=== PATIENT | female | born 1965 | race Caucasian/White ===

== ENCOUNTER 2021-06-01 15:14 | Outpatient (CLI) | payer OTHER, SELFPAY ==
--- NOTE | ~2021-06-01 | MM_ITS ---
EXAMINATION: MM screening [facility] w george HISTORY: Screening mammogram TECHNIQUE: Craniocaudal and mediolateral oblique 3-D tomosynthesis images were obtained and synthetic 2-D images were generated. CAD analysis was submitted and interpreted. COMPARISON: No prior mammogram is available for comparison at this institution. BREAST PARENCHYMAL COMPOSITION: The breasts are almost entirely fatty. FINDINGS: There is no evidence of suspicious mass, calcification, or architectural distortion to sugg est malignancy in either breast. IMPRESSION: 1. No mammographic evidence of malignancy. 2. Recommend routine screening mammography in one year. BI-RADS Category 1: Negative Reviewed, dictated and finalized at location A.
== END 2021-06-01 15:15 | disposition home or self-care (01) ==
PROVIDERS: PCP Internal Medicine; Visit Provider Internal Medicine
DX: Z12.31 Encounter for screening mammogram for malignant neoplasm of breast (principal)
CPT/HCPCS: 77063; 77067

== ENCOUNTER 2021-12-03 16:19 | Emergency (ER) | payer OTHER, SELFPAY ==
--- NOTE | ~2021-12-03 | CT_ITS ---
EXAMINATION: CT cervical spine wo con DATE: 12/03/2021 17:31 INDICATION: Neck pain after fall TECHNIQUE: Computed tomography (CT) of the cervical spine was performed without intravenous contrast. The dose-length product was 562 mGy-cm. Automated exposure control and iterative reconstruction tech nique were employed. COMPARISON: None FINDINGS: Reversal cervical cervical lordosis, likely due to muscle spasm or patient positioning. Anat tebral body heights are maintained. Odontoid process within normal limits. Lung apices are normal. No significant paraspinal soft tissue abnormality. There are mild degenerative changes of the uncinate and facet joints. No acute fracture or traumatic malalignment. IMPRESSION: 1. No acute abnormality of the cervical spine. Reviewed, dictated and finalized at location A. E VARIATION EQUIPMENT TENDER
--- NOTE | ~2021-12-03 | CT_ITS ---
EXAMINATION: CT BRAIN W/O DATE: 12/03/2021 17:31 INDICATION: Status post fall. Head injury. TECHNIQUE: Computed tomography (CT) of the head was performed without intravenous contrast. The dose- length product was 605.33 mGy-cm. Automated exposure control and iterative reconstruction technique w ere employed. COMPARISON: No prior studies for comparison. FINDINGS: Normal brain parenchymal volume for age. Normal walker-white differentiation. No acute intrac ranial hemorrhage, infarction, mass or mass effect. No ventriculomegaly or midline shift. Midline sagittal images demonstrate a normal corpus callosum, c raniovertebral junction and sella turcica. Basilar cisterns are patent. Paranasal sinuses and mastoids are pneumatized. No depressed skull fractures. IMPRESSION: 1. No acute intracranial abnormality. Reviewed, dictated and finalized at location A. WASHER
--- NOTE | ~2021-12-03 | XR_ITS ---
XR hip LT min 3V w AP pelvis 12/03/2021 17:17 INDICATION: Left hip pain PROCEDURE: 3 views left hip including AP pelvis COMPARISON: No prior studies for comparison. FINDINGS: Fracture, dislocation or subluxation is not identified. Pelvic rings are intact. There is m oderate lower lumbar spondylosis. The soft tissues appear within normal limits. No foreign bodies ar e identified. IMPRESSION: 1: NO ACUTE BONE OR JOINT ABNORMALITY IDENTIFIED. Reviewed, dictated and finalized at location A. ON MAKING MACHINIST
--- NOTE | ~2021-12-03 | XR_ITS ---
XR knee LT 3V 12/03/2021 17:17 Indication: Left knee pain Procedure: 3 views left knee Comparison: No prior studies for comparison. Findings: There is anatomic alignment. No fracture, subluxation or dislocation. No significant joint effusion. Impression: 1: No significant bone or joint abnormality. Reviewed, dictated and finalized at location A. ER OPERATOR Impression: 1: No significant bone or joint abnormality.
[2021-12-03 16:26] VITALS: BP 121/63; PULSE 86; RESP 18; TEMP 35.3; O2SAT 99
--- NOTE | 2021-12-03 16:52 | ED.FALL ---
HPI - Fall General Chief Complaint: Fall Stated Complaint: fall/hip/knee pain Time Seen by Provider: 12/03/21 16:51 History of Present Illness HPI Narrative: 56-year-old female presents emergency room complaint status post mechanical fall that occurred 36 hours prior to arrival. Patient has had multiple back surgeries, which has resulted her in having mild generalized lower extremity weakness. Patient states that she tripped landed on her left hip left knee and struck her head on the concrete. Denies loss of consciousness, altered mental status, somnolence, dizziness, lightheadedness, or nausea. Currently patient is able to ambulate with assistance of her cane. Related Data Home Medications Medication Instructions Recorded Confirmed chlorthalidone 25 mg DAILY 10/19/19 10/19/19 lisinopril 10 mg DAILY 10/19/19 10/19/19 montelukast 10 mg DAILY 10/19/19 10/19/19 potassium chloride 20 meq PO DAILY 10/19/19 10/19/19 Allergies Allergy/AdvReac Type Severity Reaction Status Date / Time No Known Allergies Allergy Verified 12/03/21 16:34 Review of Systems Review of Systems: CONSTITUTIONAL: Denies fever, chills, or sweats. EYES: Denies visual changes, redness, or discharge. ENT: Denies rhinorrhea, congestion, sore throat, or otalgia. CARDIOVASCULAR: Denies chest pain, palpitations, or edema. RESPIRATORY: Denies cough or dyspnea. GASTROINTESTINAL: Denies abdominal pain, nausea, vomiting, or diarrhea. GENITOURINARY: Denies dysuria or hematuria. SKIN: Denies rash or itching. MUSCULOSKELETAL: Per HPI: left knee pain, left hip pain. NEUROLOGIC: Denies headache, numbness, dizziness, or weakness. PSYCHIATRIC: Denies anxiety or depression. PMFSH Social History Social History Gender identity (if verbalized by the patient): Female Exam Narrative: GENERAL: Well-appearing, well-nourished, morbidly obese. HEAD: Normocephalic, atraumatic. EYES: PERRLA and EOMI. ENT: Nares clear, no rhinorrhea or epistaxis. Mucous membranes moist. Oropharynx without tonsillar hypertrophy exudate or other lesions. Bilateral TMs pearly walker nonbulging NECK: Supple. No adenopathy or masses. No carotid bruits or JVD CHEST: Clear to auscultation. No respiratory distress. No wheezes rales or rhonchi HEART: Regular rate and rhythm. No murmur heard. Normal peripheral pulses. ABDOMEN: Soft, nontender, nondistended, normal active bowel sounds. EXTREMITIES: Left knee: diffuse STS, tenderness, ecchymosis; no obvious bony abnormality; FROM. Left hip: +TTP to greater trochanter; FROM SKIN: Warm, dry, no rash. NEURO: No focal deficits. Alert and oriented x3. PSYCH: Normal mood and affect. Course Course Emergency Course: Imaging demonstrated no acute bony abnormalities to the left hip left elbow skull C-spine. CT brain was negative for any acute abnormalities. Vital Signs Vital signs: Vital Signs Temperature 35.3 C L 12/03/21 16:26 Pulse Rate 86 12/03/21 16:26 Respiratory Rate 18 12/03/21 16:26 Blood Pressure 121/63 12/03/21 16:26 Pulse Oximetry 99 12/03/21 16:26 Temperature 35.3 C L 12/03/21 16:26 Pulse Rate 86 12/03/21 16:26 Respiratory Rate 18 12/03/21 16:26 Blood Pressure 121/63 12/03/21 16:26 Pulse Oximetry 99 12/03/21 16:26 MDM - Fall MDM Narrative Medical decision making narrative: 56-year-old female presented to the emergency room with complaints of left hip left knee pain status post fall states that she struck her head on the ground. Denies loss of consciousness. Imaging studies demonstrated no acute abnormalities or fractures. Medical Records Attestation: I reviewed the patient's medical records. Imaging Data Radiologist's impression: Impressions Knee X-Ray 12/03/21 17:20 Impression: 1: No significant bone or joint abnormality. Hip/Pelvis X-Ray 12/03/21 17:26 IMPRESSION: 1: NO ACUTE BONE OR JOINT ABNORMALITY IDENTIFIED. Head
== END 2021-12-03 18:41 | disposition home or self-care (01) ==
PROVIDERS: Emergency Provider Nurse Practitioner Family; PCP Internal Medicine
DX: S70.02XA Contusion of left hip, initial encounter (principal); S80.02XA Contusion of left knee, initial encounter; S09.90XA Unspecified injury of head, initial encounter; W01.0XXA Fall on same level from slipping, tripping and stumbling without subsequent striking against object, initial encounter
CPT/HCPCS: 70450; 72125; 73502; 73562; 99284

== ENCOUNTER → 2021-12-27 14:38 | Outpatient (CLI) | payer OTHER, SELFPAY ==
--- NOTE | ~2021-12-27 | MR_ITS ---
EXAMINATION: MR knee LT wo con DATE: 12/27/2021 15:38 INDICATION: Left knee pain. TECHNIQUE: Magnetic resonance imaging (MRI) of the left knee was performed without intravenous contra st. Sequences included axial PD-weighted FS FSE, coronal PD-weighted FSE and PD-weighted FS FSE, sagi ttal PD-weighted FSE, and sagittal T2-weighted FS FSE. COMPARISON: Left knee radiographs 12/03/2021 FINDINGS: Medial compartment: Medial meniscus is normal. There is shallow partial-thickness cartilage loss of tibial condyle and fe moral condyle. Lateral compartment: Lateral meniscus is normal. There is shallow partial-thickness cartilage loss of tibial condyle and f emoral condyle. There are tiny marginal osteophytes. Patellofemoral compartment: There is deep partial thickness cartilage loss involving patellar median ridge and adjacent lateral f acet with mild subchondral edema-like signal intensity. There is shallow partial-thickness cartilage loss of trochlea. Osteophytes are noted. Ligaments and tendons: The anterior and posterior cruciate ligaments are normal. There are changes of prior sprains of media l collateral ligament and fibular collateral ligament characterized by increased signal intensity and thickening proximally. There is moderate patellar tendinopathy. Fluid: There is a small knee joint effusion. There is trace fluid in a Leonardo's cyst. There is severe prepate llar and superficial infrapatellar bursitis with a collection measuring 14.0 x 1.1 x 6.7 cm. There is widespread subcutaneous edema about the knee. IMPRESSION: 1. Moderate chondrosis of patellofemoral compartment and mild chondrosis of medial and lateral compar tments. 2. Small knee joint effusion. 3. Severe prepatellar and superficial infrapatellar bursitis. Reviewed, dictated and finalized at location A. IMPRESSION: 1. Moderate chondrosis of patellofemoral compartment and mild chondrosis of med ial and lateral compartments. 2. Small knee joint effusion. 3. Severe prepatellar and superficial infrapatellar bursitis.
== END ==
DX: M25.462 Effusion, left knee (principal); M70.52 Other bursitis of knee, left knee
CPT/HCPCS: 73721

== ENCOUNTER 2023-01-01 16:30 | Outpatient (RCR) | payer OTHER, SELFPAY ==
[2022-11-10 09:19] VITALS: PULSE 80
== END 2023-01-31 18:56 | disposition home or self-care (01) ==
LOC: ANHCPREHAB 16:30
PROVIDERS: Visit Provider Internal Medicine
DX: Z95.2 Presence of prosthetic heart valve (principal)
CPT/HCPCS: 93798